=== PATIENT | male | born 1955 | race Caucasian/White ===

== ENCOUNTER 2019-01-28 20:48 | Observation (INO) ==
[2019-01-28] MEDS ORDERED: ASPIRIN 325 MG TABLET PO STA (20:54)
[2019-01-28] MEDS ORDERED: hydrALAZINE 20 MG/1 ML VIAL IV STA (21:16)
[2019-01-28] MEDS ORDERED: PANTOPRAZOLE 40 MG VIAL IV STA (21:16)
[2019-01-28] MEDS ORDERED: ONDANSETRON 4 MG/2 ML VIAL IV STA (21:16)
[2019-01-28] MEDS ORDERED: HYDROmorphone 2 MG/1 ML VIAL IV STA (21:16)
[2019-01-28 22:48] LABS: Amylase 38 U/L (25-115); Basophils % 0.3 % (0.0-0.8); Eosinophils # 0.1 10*3/uL (0.0-0.87); Eosinophils % 1.4 % (0.00-10.9); Hematocrit 49.2 VOL% (42.0-52.0); Hemoglobin 16.4 GM/DL (14.0-18.0); Immature Granulocytes % 0.6 %; Immature Granulocytes Absolute 0.06 #; Lymphocytes # 1.3 10*3/uL (1.4-4.0); Lymphocytes % 14.3 % (21.2-54.2); Mean Corpuscular HGB Conc 33.3 GM/DL (32-36); Mean Corpuscular Volume 95.2 FL (87-102); Mean Platelet Volume 12.6 FL (9.6-12.0); Monocytes % 9.3 % (1.7-12.7); Neutrophils % 74.1 % (38.7-73.9); Platelet Count 222 T/CUMM (130-400); Red Blood Count 5.17 MC/CUMM (3.8-5.5); Troponin I 0.016 NG/ML (0.00-0.045); White Blood Count 9.4 T/CUMM (4-12)
[2019-01-28 23:01] LABS: Apearance,Urine CLEAR (Clear); Bacteria,Urine Occasional /HPF (Few); Bilirubin,Urine Negative (Negative); Blood, Urine Negative (Negative); Glucose,Urine (UA) Negative (Negative); Hyaline Casts,Urine 1 /LPF (0-3); Ketones,Urine Negative (Negative); Mucus,Urine Occasional /LPF (Occasional); Nitrite,Urine Negative (Negative); Protein,Urine 30 MG/DL; RBC,Urine <1 /HPF (0-4); Squamous Epithelial Cell,Urine Occasional /HPF (0-10); Urine Color Yellow (Yellow); Urine Specific Gravity 1.023 (1.001-1.035); WBC,Urine <1 /HPF (0-6)
[2019-01-28 23:08] LABS: Barbiturates Screen,Urine Negative (Negative); Benzodiazepines Screen,Urine Positive (Negative); Cannabinoid Screen,Urine Positive (Negative); Opiate Screen,Urine Positive (Negative); Phencyclidine Screen,Urine Negative (Negative)
[2019-01-28 23:12] LABS: Albumin 3.7 G/DL (3.4-5.0); Bilirubin,Total 0.8 MG/DL (0.2-1.0); Calcium 9.4 MG/DL (8.5-10.1); Osmolality,Calculated 283.3 MOS/KG (273-304)
[2019-01-29] MEDS ORDERED: hydrALAZINE 20 MG/1 ML VIAL IV STA (00:07)
[2019-01-29] MEDS ORDERED: HYDROmorphone 2 MG/1 ML VIAL IV ONE (00:07)
[2019-01-29] MEDS ORDERED: ONDANSETRON 4 MG/2 ML VIAL IV STA (00:07)
[2019-01-29] MEDS ORDERED: traZODone 50 MG TABLET PO PRN (01:31)
[2019-01-29] MEDS ORDERED: ACETAMINOPHEN 325 MG TABLET PO PRN (01:31)
[2019-01-29] MEDS ORDERED: hydrALAZINE 20 MG/1 ML VIAL IV PRN (01:31)
[2019-01-29] MEDS ORDERED: NICOTINE 21 MG/24 HR PATCH TRANSDERM PRN (01:31)
[2019-01-29] MEDS ORDERED: ONDANSETRON 4 MG/2 ML VIAL IV PRN (01:31)
[2019-01-29 02:52] LABS: Albumin 3.6 G/DL (3.4-5.0); Bilirubin,Direct 0.2 MG/DL (0.0-0.20); Bilirubin,Indirect 0.3 MG/DL (0.0-1.0); Bilirubin,Total 0.5 MG/DL (0.2-1.0); Total Protein 7.6 G/DL (6.4-8.3)
[2019-01-29 02:59] LABS: Risk Ratio 2.98; VLDL CHOLESTEROL 24.8 MG/DL
[2019-01-29] MEDS: MORPHINE 4 MG/1 ML VIAL IV PRN ×2 (03:00→08:40)
[2019-01-29 03:42] LABS: Hepatitis B Core IgM Quant < 0.05 Index; Hepatitis B Surface Ag Quant 0.24 Index; Hepatitis B Surface Ag Result Negative (Negative); Hepatitis C Virus Ab Quant > 11.00 Index; Hepatitis C Virus Ab Result Positive (Negative)
[2019-01-29] MEDS: LISINOPRIL 20 MG TABLET PO SCH (08:42)
[2019-01-29] MEDS ORDERED: amLODIPine 10 MG TABLET PO SCH (10:05)
[2019-01-29 10:24] LABS: % Iron Saturation 28.7 % (18-50)
[2019-01-29 10:28] LABS: Troponin I 0.018 NG/ML (0.00-0.045)
[2019-01-29] MEDS: HYDROmorphone 2 MG/1 ML VIAL IV PRN ×3 (11:08→22:06)
[2019-01-29 13:10] LABS: Troponin I < 0.015 NG/ML (0.00-0.045)
[2019-01-29] MEDS: hydroCHLOROthiazide 25 MG TABLET PO SCH (15:32)
[2019-01-29 16:38] LABS: Troponin I < 0.015 NG/ML (0.00-0.045)
[2019-01-29] MEDS: PANTOPRAZOLE 40 MG VIAL IV SCH (22:06)
[2019-01-30] MEDS: HYDROmorphone 2 MG/1 ML VIAL IV PRN ×3 (01:35→11:14)
[2019-01-30 05:40] LABS: Basophils % 0.4 % (0.0-0.8); Eosinophils # 0.3 10*3/uL (0.0-0.87); Hematocrit 48.2 VOL% (42.0-52.0); Hemoglobin 15.7 GM/DL (14.0-18.0); Immature Granulocytes % 0.5 %; Immature Granulocytes Absolute 0.05 #; Lymphocytes # 1.7 10*3/uL (1.4-4.0); Lymphocytes % 16.9 % (21.2-54.2); Mean Corpuscular HGB Conc 32.6 GM/DL (32-36); Mean Corpuscular Volume 95.4 FL (87-102); Mean Platelet Volume 12.9 FL (9.6-12.0); Monocytes % 9.6 % (1.7-12.7); Neutrophils % 69.6 % (38.7-73.9); Platelet Count 206 T/CUMM (130-400); Red Blood Count 5.05 MC/CUMM (3.8-5.5); Red Cell Distribution Width 12.2 % (9.3-17.3); White Blood Count 9.8 T/CUMM (4-12)
[2019-01-30 06:02] LABS: Calcium 8.7 MG/DL (8.5-10.1)
[2019-01-30] MEDS ORDERED: LACTATED RINGERS 1,000 ML IV SCH (08:30)
[2019-01-30] MEDS ORDERED: PROPOFOL 200 MG/20 ML VIAL IV ONE (10:00)
[2019-01-30] MEDS ORDERED: LIDOCAINE 2% 5 ML VIAL ONE (10:00)
[2019-01-30] MEDS: PANTOPRAZOLE 40 MG VIAL IV SCH (11:13)
[2019-01-30] MEDS: hydroCHLOROthiazide 25 MG TABLET PO SCH (11:13)
[2019-01-30] MEDS: LISINOPRIL 20 MG TABLET PO SCH (11:13)
[2019-01-30 11:25] VITALS: BP 144/72
== END 2019-01-30 14:25 | disposition home or self-care (01) ==
LOC: N.EDINP 20:48 → N.ED 20:48 → N.TELEN 01-29 02:12
PROVIDERS: ADMIT Family Medicine; ATTEND Family Medicine

== ENCOUNTER 2019-05-05 22:17 | Observation (INO) ==
[2019-05-05] MEDS ORDERED: SODIUM CHLORIDE 0.9% 1,000 ML IV STA (23:26)
[2019-05-05] MEDS ORDERED: PANTOPRAZOLE 40 MG VIAL IV STA (23:26)
[2019-05-05] MEDS ORDERED: ONDANSETRON 4 MG/2 ML VIAL IV STA (23:26)
[2019-05-05 23:56] LABS: Basophils % 0.4 % (0.0-0.8); Eosinophils # 0.3 10*3/uL (0.0-0.87); Eosinophils % 2.9 % (0.00-10.9); Hematocrit 41.2 VOL% (42.0-52.0); Hemoglobin 13.7 GM/DL (14.0-18.0); Immature Granulocytes % 0.6 %; Immature Granulocytes Absolute 0.06 #; Lymphocytes # 1.6 10*3/uL (1.4-4.0); Lymphocytes % 15.9 % (21.2-54.2); Mean Corpuscular HGB Conc 33.3 GM/DL (32-36); Mean Corpuscular Volume 96.5 FL (87-102); Mean Platelet Volume 12.6 FL (9.6-12.0); Monocytes % 8.3 % (1.7-12.7); Neutrophils % 71.9 % (38.7-73.9); Platelet Count 190 T/CUMM (130-400); Red Blood Count 4.27 MC/CUMM (3.8-5.5); Red Cell Distribution Width 12.1 % (9.3-17.3); White Blood Count 9.9 T/CUMM (4-12)
[2019-05-06 00:06] LABS: INR 0.9; Partial Thromboplastin Time 25.9 SECS (20.8-36.0)
[2019-05-06 00:14] LABS: Alanine Aminotransferase 172 U/L (16-61); Albumin 3.2 G/DL (3.4-5.0); Alkaline Phosphatase 116 U/L (45-117); Aspartate Amino Transferase 151 U/L (0-37); Blood Urea Nitrogen 15 MG/DL (7-18); Calcium 8.3 MG/DL (8.5-10.1); Estimated Glom Filtration Rate 96 ML/MIN; Glucose 177 MG/DL (74-106); Osmolality,Calculated 277.8 MOS/KG (273-304); Total Protein 6.7 G/DL (6.4-8.3); Troponin I 0.044 NG/ML (0.00-0.045)
[2019-05-06] MEDS ORDERED: ORPHENADRINE 60 MG/2 ML VIAL IV STA (00:34)
[2019-05-06] MEDS ORDERED: ORPHENADRINE 60 MG/2 ML VIAL ONE (00:35)
[2019-05-06] MEDS ORDERED: NICOTINE 21 MG/24 HR PATCH TRANSDERM PRN (02:25)
[2019-05-06] MEDS ORDERED: GLUCAGON 1 MG VIAL IM PRN (02:25)
[2019-05-06] MEDS ORDERED: CALCIUM CARBONATE CHEW 500 MG TABLET PO PRN (02:25)
[2019-05-06] MEDS ORDERED: ONDANSETRON 4 MG/2 ML VIAL IV PRN (02:25)
[2019-05-06] MEDS ORDERED: hydrALAZINE 20 MG/1 ML VIAL IV PRN (02:25)
[2019-05-06] MEDS ORDERED: DEXTROSE 10% 250 ML BAG IV PRN (02:41)
[2019-05-06] MEDS: SODIUM CHLORIDE 0.9% 1,000 ML IV SCH ×2 (03:45→16:03)
[2019-05-06] MEDS: MORPHINE 4 MG/1 ML VIAL IV PRN ×3 (03:46→16:01)
[2019-05-06 05:58] LABS: Hemoglobin 14.2 GM/DL (14.0-18.0)
[2019-05-06] MEDS: PANTOPRAZOLE 40 MG VIAL IV SCH (08:34)
[2019-05-06] MEDS: lisinopriL 20 MG TABLET PO SCH ×2 (08:35→22:43)
[2019-05-06] MEDS: amLODIPine 5 MG TABLET PO SCH (09:53)
[2019-05-06] MEDS: POLYETHYLENE GLYCOL POWDER 17 GM PACK PO SCH ×3 (09:53→22:50)
[2019-05-06 10:45] LABS: Barbiturates Screen,Urine Negative (Negative); Benzodiazepines Screen,Urine Negative (Negative); Cannabinoid Screen,Urine Negative (Negative); Opiate Screen,Urine Positive (Negative); Phencyclidine Screen,Urine Negative (Negative)
[2019-05-06 13:37] LABS: Hematocrit 40.1 VOL% (42.0-52.0); Hemoglobin 13.1 GM/DL (14.0-18.0)
[2019-05-06] MEDS ORDERED: ACETAMINOPHEN 500 MG TABLET PO PRN (19:47)
[2019-05-06 20:28] LABS: Hematocrit 36.3 VOL% (42.0-52.0); Hemoglobin 11.5 GM/DL (14.0-18.0)
[2019-05-07] MEDS: PANTOPRAZOLE 40 MG VIAL IV SCH ×2 (01:00→09:19)
[2019-05-07] MEDS: MORPHINE 4 MG/1 ML VIAL IV PRN ×2 (01:04→09:18)
[2019-05-07] MEDS: SODIUM CHLORIDE 0.9% 1,000 ML IV SCH (04:20)
[2019-05-07] MEDS: amLODIPine 5 MG TABLET PO SCH (09:19)
[2019-05-07] MEDS: lisinopriL 20 MG TABLET PO SCH (09:19)
[2019-05-07] MEDS: POLYETHYLENE GLYCOL POWDER 17 GM PACK PO SCH (09:22)
[2019-05-07 09:26] VITALS: BP 162/97
== END 2019-05-07 12:22 | disposition home or self-care (01) ==
LOC: N.ED 22:17 → N.EDINP 22:17 → SUATTDRO 05-06 01:08 → N.2W 05-06 02:15
PROVIDERS: ADMIT Internal Medicine; ATTEND Internal Medicine

== ENCOUNTER 2019-07-14 08:41 | Observation (INO) ==
[2019-07-14] MEDS ORDERED: ENOXAPARIN 100 MG/ML SYRINGE SUBCUT STA (09:12)
[2019-07-14] MEDS ORDERED: ASPIRIN 325 MG TABLET PO STA (09:12)
[2019-07-14] MEDS ORDERED: METOPROLOL TARTRATE 5 MG/5 ML VIAL IV STA (09:41)
[2019-07-14] MEDS ORDERED: ENOXAPARIN 120 MG/0.8 ML SYRINGE SUBCUT ONE (09:42)
[2019-07-14] MEDS ORDERED: METOPROLOL TARTRATE 5 MG/5 ML VIAL IV ONE (09:42)
[2019-07-14] MEDS ORDERED: NITROGLYCERIN SL 0.4 MG TABLET SL ONE (09:43)
[2019-07-14 09:45] LABS: Basophils % 0.2 % (0.0-0.8); Eosinophils # 0.2 10*3/uL (0.0-0.87); Eosinophils % 2.7 % (0.00-10.9); Hematocrit 45.1 VOL% (42.0-52.0); Hemoglobin 14.5 GM/DL (14.0-18.0); Immature Granulocytes Absolute 0.08 #; Lymphocytes # 0.9 10*3/uL (1.4-4.0); Lymphocytes % 10.8 % (21.2-54.2); Mean Corpuscular HGB Conc 32.2 GM/DL (32-36); Mean Platelet Volume 12.3 FL (9.6-12.0); Monocytes % 8.8 % (1.7-12.7); Neutrophils % 76.5 % (38.7-73.9); Platelet Count 189 T/CUMM (130-400); Red Blood Count 4.65 MC/CUMM (3.8-5.5); Red Cell Distribution Width 11.9 % (9.3-17.3); White Blood Count 8.4 T/CUMM (4-12)
[2019-07-14] MEDS ORDERED: NITROGLYCERIN SL 0.4 MG TABLET SL STA (09:53)
[2019-07-14 10:10] LABS: Bilirubin,Total 0.4 MG/DL (0.2-1.0); Calcium 8.9 MG/DL (8.5-10.1); Osmolality,Calculated 282.7 MOS/KG (273-304); Total Protein 7.6 G/DL (6.4-8.3)
[2019-07-14] MEDS ORDERED: INSULIN REGULAR 100 UNIT/ML SUBCUT STA (10:25)
[2019-07-14] MEDS ORDERED: NITROGLYCERIN 2% OINT 1 INCH/GM PACK TOP ONE (10:33)
[2019-07-14] MEDS ORDERED: NITROGLYCERIN 2% OINT 1 INCH/GM PACK TOP STA (11:30)
[2019-07-14] MEDS ORDERED: hydrALAZINE 20 MG/1 ML VIAL IV PRN (11:42)
[2019-07-14] MEDS ORDERED: DEXTROSE 50% 25 GM/50 ML VIAL IV PRN (11:42)
[2019-07-14] MEDS ORDERED: ONDANSETRON 4 MG/2 ML VIAL IV PRN (11:42)
[2019-07-14] MEDS ORDERED: ACETAMINOPHEN 325 MG TABLET PO PRN (11:42)
[2019-07-14] MEDS ORDERED: GLUCAGON 1 MG VIAL IM PRN (11:42)
[2019-07-14] MEDS ORDERED: LACTULOSE 20 GM/30 ML UDCUP PO PRN (11:42)
[2019-07-14 11:57] LABS: Apearance,Urine CLEAR (Clear); Bilirubin,Urine Negative (Negative); Blood, Urine Negative (Negative); Glucose,Urine (UA) >=500 mg/dL (Negative); Hyaline Casts,Urine 1 /LPF (0-3); Ketones,Urine Negative (Negative); Mucus,Urine Occasional /LPF (Occasional); Nitrite,Urine Negative (Negative); Protein,Urine Negative; RBC,Urine <1 /HPF (0-4); Urine Color Yellow (Yellow); Urine Specific Gravity 1.024 (1.001-1.035); WBC,Urine 1 /HPF (0-6)
[2019-07-14 12:04] LABS: Barbiturates Screen,Urine Negative (Negative); Benzodiazepines Screen,Urine Negative (Negative); Cannabinoid Screen,Urine Negative (Negative); Opiate Screen,Urine Negative (Negative); Phencyclidine Screen,Urine Negative (Negative)
[2019-07-14 12:11] LABS: Thyroid Stimulating Hormone 12.3 uIU/ml (0.358-3.74)
[2019-07-14] MEDS ORDERED: MAGNESIUM SULF RIDER 4 GM in PREMIX 1 EACH IV PRN (12:18)
[2019-07-14] MEDS ORDERED: MAGNESIUM SULF RIDER 2 GM in PREMIX 1 EACH IV PRN (12:18)
[2019-07-14] MEDS ORDERED: carvediloL 6.25 MG TABLET PO SCH (12:30)
[2019-07-14] MEDS ORDERED: ALBUTEROL/IPRATROPIUM 3 ML NEB RESP TX PRN (13:07)
[2019-07-14] MEDS ORDERED: METOPROLOL SUCCINATE XL 25 MG TABLET PO SCH (13:30)
[2019-07-14] MEDS ORDERED: ALUM/MAG/SIMETH/LIDO VISC 1:1 30 ML BOTTLE PO ONE (13:35)
[2019-07-14] MEDS: ENOXAPARIN 40 MG/0.4 ML SYRINGE SUBCUT SCH (14:09)
[2019-07-14] MEDS: MORPHINE 4 MG/1 ML VIAL IV PRN ×2 (14:32→20:57)
[2019-07-14] MEDS: INSULIN REGULAR 100 UNIT/ML SUBCUT SCH ×2 (17:14→20:58)
[2019-07-14] MEDS: NITROGLYCERIN 2% OINT 1 INCH/GM PACK TOP SCH ×2 (17:34→23:33)
[2019-07-14] MEDS: guaiFENesin/DM ER 600-30 MG TABLET PO SCH (20:57)
[2019-07-14] MEDS ORDERED: NON-FORMULARY MEDICATION (Lisinopril 40 MG) PO SCH (21:00)
[2019-07-15] MEDS: MORPHINE 4 MG/1 ML VIAL IV PRN ×2 (02:30→07:58)
[2019-07-15] MEDS: NITROGLYCERIN 2% OINT 1 INCH/GM PACK TOP SCH (05:03)
[2019-07-15 06:13] LABS: Basophils % 0.5 % (0.0-0.8); Eosinophils # 0.3 10*3/uL (0.0-0.87); Eosinophils % 3.4 % (0.00-10.9); Hematocrit 44.7 VOL% (42.0-52.0); Hemoglobin 14.8 GM/DL (14.0-18.0); Immature Granulocytes % 1.2 %; Lymphocytes # 1.4 10*3/uL (1.4-4.0); Mean Corpuscular HGB Conc 33.1 GM/DL (32-36); Mean Corpuscular Volume 93.9 FL (87-102); Mean Platelet Volume 13.5 FL (9.6-12.0); Monocytes % 9.4 % (1.7-12.7); Neutrophils % 68.5 % (38.7-73.9); Platelet Count 141 T/CUMM (130-400); Red Blood Count 4.76 MC/CUMM (3.8-5.5); Red Cell Distribution Width 11.9 % (9.3-17.3)
[2019-07-15] MEDS ORDERED: LEVOTHYROXINE 50 MCG TABLET PO SCH (06:30)
[2019-07-15 06:35] LABS: Platelet Estimate Adequate
[2019-07-15 06:43] LABS: Calcium 8.9 MG/DL (8.5-10.1); Osmolality,Calculated 266.7 MOS/KG (273-304); Risk Ratio 4.91; VLDL CHOLESTEROL 50.6 MG/DL
[2019-07-15] MEDS: INSULIN REGULAR 100 UNIT/ML SUBCUT SCH ×2 (07:56→12:17)
[2019-07-15] MEDS: guaiFENesin/DM ER 600-30 MG TABLET PO SCH (07:59)
[2019-07-15] MEDS ORDERED: ASPIRIN EC 81 MG TABLET PO SCH (09:00)
[2019-07-15] MEDS ORDERED: lisinopriL 20 MG TABLET PO SCH (09:00)
[2019-07-15] MEDS ORDERED: amLODIPine 5 MG TABLET PO SCH (09:00)
[2019-07-15] MEDS ORDERED: amLODIPine 10 MG TABLET PO SCH (09:00)
[2019-07-15] MEDS ORDERED: METOPROLOL SUCCINATE XL 25 MG TABLET PO SCH (09:00)
[2019-07-15] MEDS ORDERED: ISOSORBIDE MONONITRATE 30 MG TABLET PO SCH (09:12)
[2019-07-15] MEDS ORDERED: PANTOPRAZOLE 40 MG TABLET PO SCH (10:00)
[2019-07-15] MEDS: ENOXAPARIN 40 MG/0.4 ML SYRINGE SUBCUT SCH (12:15)
[2019-07-15 12:31] VITALS: BP 165/95
[2019-07-16] MEDS ORDERED: ISOSORBIDE MONONITRATE 30 MG TABLET PO SCH (09:00)
== END 2019-07-15 12:47 | disposition home or self-care (01) ==
LOC: N.ED 08:41 → N.EDINP 08:41 → N.TELES 12:29
PROVIDERS: ADMIT Internal Medicine Geriatric Medicine; ATTEND Internal Medicine Geriatric Medicine

== ENCOUNTER 2020-06-25 14:16 | Inpatient (IN) ==
[2020-06-25] MEDS ORDERED: DILTIAZEM 50 MG/10 ML VIAL IV STA ×2 (14:44→15:38)
[2020-06-25] MEDS ORDERED: DILTIAZEM 100 MG VIAL.ADD IV ONE (14:46)
[2020-06-25 14:50] LABS: Basophils % 0.4 % (0.0-0.8); Eosinophils # 0.3 10*3/uL (0.0-0.87); Eosinophils % 3.9 % (0.00-10.9); Hematocrit 43.4 VOL% (42.0-52.0); Hemoglobin 13.9 GM/DL (14.0-18.0); Immature Granulocytes % 0.6 %; Immature Granulocytes Absolute 0.05 #; Lymphocytes # 1.3 10*3/uL (1.4-4.0); Lymphocytes % 15.6 % (21.2-54.2); Mean Corpuscular Volume 101.6 FL (87-102); Mean Platelet Volume 13.1 FL (9.6-12.0); Monocytes % 10.2 % (1.7-12.7); Neutrophils % 69.3 % (38.7-73.9); Platelet Count 155 T/CUMM (130-400); Red Blood Count 4.27 MC/CUMM (3.8-5.5); White Blood Count 8.3 T/CUMM (4-12)
[2020-06-25] MEDS: DILTIAZEM INJ 100 MG in SODIUM CHLORIDE 0.9% 100 ML IV SCH ×2 (15:06→23:59)
[2020-06-25 15:08] LABS: Albumin 3.3 G/DL (3.4-5.0); Bilirubin,Total 0.5 MG/DL (0.2-1.0); Calcium 8.3 MG/DL (8.5-10.1); Osmolality,Calculated 279.1 MOS/KG (273-304); Potassium 4.5 MMOL/L (3.5-5.1)
[2020-06-25 15:36] LABS: PT Patient Result 10.3 SECS (9.8-11.9); Partial Thromboplastin Time 25.4 SECS (23.9-33.8)
[2020-06-25 16:06] LABS: Barbiturates Screen,Urine Negative (Negative); Benzodiazepines Screen,Urine Negative (Negative); Cannabinoid Screen,Urine Positive (Negative); Opiate Screen,Urine Negative (Negative); Phencyclidine Screen,Urine Negative (Negative)
[2020-06-25] MEDS ORDERED: hydrALAZINE 20 MG/1 ML VIAL IV STA (16:20)
[2020-06-25] MEDS ORDERED: FUROSEMIDE 40 MG/4 ML VIAL ONE (16:26)
[2020-06-25] MEDS ORDERED: FUROSEMIDE 40 MG/4 ML VIAL IV STA (16:26)
[2020-06-25] MEDS ORDERED: ONDANSETRON 4 MG/2 ML VIAL IV PRN (17:26)
[2020-06-25] MEDS ORDERED: DOCUSATE SODIUM 100 MG CAPSULE PO PRN (17:26)
[2020-06-25] MEDS ORDERED: hydrALAZINE 20 MG/1 ML VIAL IV PRN (17:26)
[2020-06-25] MEDS ORDERED: GLUCAGON 1 MG VIAL IM PRN (17:26)
[2020-06-25] MEDS ORDERED: DEXTROSE 50% 25 GM/50 ML VIAL IV PRN (17:26)
[2020-06-25] MEDS ORDERED: guaiFENesin/DM ER 600-30 MG TABLET PO PRN (17:26)
[2020-06-25] MEDS ORDERED: ACETAMINOPHEN 325 MG TABLET PO PRN (17:26)
[2020-06-25] MEDS ORDERED: methylPREDNISolone SOD SUC 125 MG/2 ML VIAL IV STA (17:32)
[2020-06-25] MEDS ORDERED: MAGNESIUM SULF RIDER 2 GM in PREMIX 1 EACH IV ONE (18:00)
[2020-06-25 19:19] LABS: Bilirubin,Urine Negative (Negative); Blood, Urine Negative (Negative); Glucose,Urine (UA) Negative (Negative); Ketones,Urine Negative (Negative); Mucus,Urine Occasional /LPF (Occasional); Nitrite,Urine Negative (Negative); Protein,Urine Negative; RBC,Urine 1 /HPF (0-4); Urine Appearance CLEAR (Clear); Urine Color Colorless (Yellow); Urine Specific Gravity 1.014 (1.001-1.035); Urine Urobilinogen < 2.0 EU/DL (0.2-1.0); WBC,Urine <1 /HPF (0-6)
[2020-06-25] MEDS: ENOXAPARIN 40 MG/0.4 ML SYRINGE SUBCUT SCH (19:26)
[2020-06-25] MEDS: METOPROLOL SUCCINATE XL 25 MG TABLET PO SCH (19:26)
[2020-06-25] MEDS: INSULIN REGULAR 100 UNIT/ML SUBCUT SCH (19:42)
[2020-06-25] MEDS: ALBUTEROL/IPRATROPIUM 3 ML NEB RESP TX SCH (19:42)
[2020-06-26] MEDS: ALBUTEROL/IPRATROPIUM 3 ML NEB RESP TX SCH ×4 (00:40→19:25)
[2020-06-26 05:59] LABS: Basophils % 0.1 % (0.0-0.8); Eosinophils % 0.1 % (0.00-10.9); Immature Granulocytes % 0.8 %; Immature Granulocytes Absolute 0.07 #; Lymphocytes # 0.6 10*3/uL (1.4-4.0); Lymphocytes % 6.4 % (21.2-54.2); Mean Corpuscular HGB Conc 33.3 GM/DL (32-36); Mean Corpuscular Volume 99.5 FL (87-102); Mean Platelet Volume 14.1 FL (9.6-12.0); Monocytes % 1.9 % (1.7-12.7); Neutrophils % 90.7 % (38.7-73.9); Platelet Count 169 T/CUMM (130-400); Red Blood Count 4.22 MC/CUMM (3.8-5.5); Red Cell Distribution Width 12.8 % (9.3-17.3)
[2020-06-26 06:23] LABS: Albumin 3.3 G/DL (3.4-5.0); Bilirubin,Direct 0.27 MG/DL (0.0-0.20); Bilirubin,Indirect 0.7 MG/DL (0.0-1.0); Total Protein 7.8 G/DL (6.4-8.2)
[2020-06-26 06:31] LABS: Osmolality,Calculated 279.5 MOS/KG (273-304); Potassium 4.6 MMOL/L (3.5-5.1); Risk Ratio 2.44; Thyroid Stimulating Hormone 2.1 uIU/ml (0.358-3.74); VLDL CHOLESTEROL 13.2 MG/DL
[2020-06-26 06:58] LABS: Anisocytosis Slight; Band Neutrophils 15 % (0-10); Lymphocytes 8 % (20-55); Macrocytosis Slight; Platelet Estimate Normal; Segmented Neutrophils 74 % (50-85); Total Cells Counted 100
[2020-06-26] MEDS: GLIMEPIRIDE 2 MG TABLET PO SCH ×2 (08:41→16:05)
[2020-06-26] MEDS: methylPREDNISolone SOD SUC 125 MG/2 ML VIAL IV SCH ×2 (08:43→20:08)
[2020-06-26] MEDS: METOPROLOL SUCCINATE XL 25 MG TABLET PO SCH (08:43)
[2020-06-26] MEDS: PANTOPRAZOLE 40 MG TABLET PO SCH (08:43)
[2020-06-26] MEDS: FUROSEMIDE 40 MG/4 ML VIAL IV SCH ×2 (08:43→15:31)
[2020-06-26] MEDS: INSULIN REGULAR 100 UNIT/ML SUBCUT SCH ×4 (08:53→20:12)
[2020-06-26] MEDS ORDERED: amLODIPine 10 MG TABLET PO SCH (09:00)
[2020-06-26] MEDS: ASPIRIN EC 325 MG TABLET PO SCH (09:10)
[2020-06-26] MEDS: DILTIAZEM 60 MG TABLET PO SCH ×3 (09:10→17:56)
[2020-06-26] MEDS: ENOXAPARIN 40 MG/0.4 ML SYRINGE SUBCUT SCH (17:56)
[2020-06-27] MEDS: ALBUTEROL/IPRATROPIUM 3 ML NEB RESP TX SCH ×4 (00:06→18:54)
[2020-06-27] MEDS: DILTIAZEM 60 MG TABLET PO SCH ×2 (02:45→06:15)
[2020-06-27 04:29] LABS: Basophils % 0.1 % (0.0-0.8); Hematocrit 42.1 VOL% (42.0-52.0); Hemoglobin 13.6 GM/DL (14.0-18.0); Immature Granulocytes % 0.7 %; Immature Granulocytes Absolute 0.13 #; Lymphocytes % 5.4 % (21.2-54.2); Mean Corpuscular HGB Conc 32.3 GM/DL (32-36); Mean Corpuscular Volume 101.2 FL (87-102); Mean Platelet Volume 12.9 FL (9.6-12.0); Monocytes % 4.5 % (1.7-12.7); Neutrophils % 89.3 % (38.7-73.9); Platelet Count 232 T/CUMM (130-400); Red Blood Count 4.16 MC/CUMM (3.8-5.5)
[2020-06-27 05:00] LABS: Calcium 8.9 MG/DL (8.5-10.1); Osmolality,Calculated 280.4 MOS/KG (273-304); Potassium 4.3 MMOL/L (3.5-5.1)
[2020-06-27 05:03] LABS: Albumin 3.2 G/DL (3.4-5.0); Bilirubin,Direct 0.18 MG/DL (0.0-0.20); Bilirubin,Indirect 0.8 MG/DL (0.0-1.0); Total Protein 7.9 G/DL (6.4-8.2)
[2020-06-27] MEDS: GLIMEPIRIDE 2 MG TABLET PO SCH ×2 (09:08→16:54)
[2020-06-27] MEDS: METOPROLOL SUCCINATE XL 25 MG TABLET PO SCH (09:10)
[2020-06-27] MEDS: PANTOPRAZOLE 40 MG TABLET PO SCH (09:10)
[2020-06-27] MEDS: ASPIRIN EC 325 MG TABLET PO SCH (09:11)
[2020-06-27] MEDS: INSULIN REGULAR 100 UNIT/ML SUBCUT SCH ×4 (09:16→20:46)
[2020-06-27] MEDS: FUROSEMIDE 40 MG/4 ML VIAL IV SCH ×2 (09:17→16:50)
[2020-06-27] MEDS: methylPREDNISolone SOD SUC 125 MG/2 ML VIAL IV SCH ×2 (09:21→20:46)
[2020-06-27] MEDS: DILTIAZEM CD 240 MG CAPSULE PO SCH ×2 (11:29→13:00)
[2020-06-27 15:43] LABS: Troponin I < 0.015 NG/ML (0.00-0.045)
[2020-06-27] MEDS: cefTRIAXone 2,000 MG in SYRINGE 1 EACH IV SCH (15:54)
[2020-06-27] MEDS: ENOXAPARIN 40 MG/0.4 ML SYRINGE SUBCUT SCH (17:06)
[2020-06-28] MEDS: ALBUTEROL/IPRATROPIUM 3 ML NEB RESP TX SCH ×3 (00:09→13:42)
[2020-06-28 04:00] LABS: Basophils % 0.1 % (0.0-0.8); Hematocrit 42.2 VOL% (42.0-52.0); Immature Granulocytes % 0.8 %; Immature Granulocytes Absolute 0.14 #; Lymphocytes # 0.8 10*3/uL (1.4-4.0); Lymphocytes % 4.7 % (21.2-54.2); Mean Corpuscular HGB Conc 33.2 GM/DL (32-36); Mean Corpuscular Volume 99.5 FL (87-102); Mean Platelet Volume 12.7 FL (9.6-12.0); Monocytes % 5.1 % (1.7-12.7); Neutrophils % 89.3 % (38.7-73.9); Platelet Count 193 T/CUMM (130-400); Red Blood Count 4.24 MC/CUMM (3.8-5.5); White Blood Count 16.5 T/CUMM (4-12)
[2020-06-28 04:21] LABS: Lymphocytes 5 % (20-55); Platelet Estimate Adequate; Segmented Neutrophils 87 % (50-85); Total Cells Counted 100
[2020-06-28 04:22] LABS: Calcium 8.5 MG/DL (8.5-10.1); Osmolality,Calculated 283.4 MOS/KG (273-304); Potassium 4.1 MMOL/L (3.5-5.1)
[2020-06-28 04:24] LABS: Bilirubin,Direct 0.14 MG/DL (0.0-0.20); Bilirubin,Total 1.1 MG/DL (0.2-1.0); Total Protein 7.6 G/DL (6.4-8.2)
[2020-06-28 04:24] LABS: Troponin I < 0.015 NG/ML (0.00-0.045)
[2020-06-28] MEDS: INSULIN REGULAR 100 UNIT/ML SUBCUT SCH ×2 (08:43→11:12)
[2020-06-28] MEDS: FUROSEMIDE 40 MG/4 ML VIAL IV SCH (08:44)
[2020-06-28] MEDS: ASPIRIN EC 325 MG TABLET PO SCH (08:50)
[2020-06-28] MEDS: METOPROLOL SUCCINATE XL 25 MG TABLET PO SCH (08:50)
[2020-06-28] MEDS: PANTOPRAZOLE 40 MG TABLET PO SCH (08:51)
[2020-06-28] MEDS: GLIMEPIRIDE 2 MG TABLET PO SCH (08:51)
[2020-06-28] MEDS: DILTIAZEM CD 240 MG CAPSULE PO SCH (08:52)
[2020-06-28] MEDS ORDERED: lisinopriL 20 MG TABLET PO SCH (09:00)
[2020-06-28] MEDS ORDERED: predniSONE 20 MG TABLET PO SCH (09:00)
[2020-06-28] MEDS ORDERED: METOPROLOL SUCCINATE XL 25 MG TABLET PO ONE (09:24)
[2020-06-28] MEDS: cefTRIAXone 2,000 MG in SYRINGE 1 EACH IV SCH (15:06)
[2020-06-28] MEDS ORDERED: FUROSEMIDE 40 MG TABLET PO SCH (16:00)
[2020-06-28 16:20] VITALS: BP 129/85
[2020-06-29] MEDS ORDERED: METOPROLOL SUCCINATE XL 25 MG TABLET PO SCH (09:00)
[2020-06-29] MEDS ORDERED: METOPROLOL SUCCINATE XL 50 MG TABLET PO SCH (09:00)
== END 2020-06-28 17:15 | disposition home or self-care (01) | DRG 308 ==
LOC: N.ED 14:16 → SUATTDRO 17:26 → N.EDINP 17:26 → N.TELES 18:23
PROVIDERS: ADMIT Phlebology; ATTEND Internal Medicine

== ENCOUNTER 2020-09-05 11:43 | Observation (INO) ==
[2020-09-05] MEDS ORDERED: DEXTROSE 50% 25 GM/50 ML VIAL IV PRN (14:40)
[2020-09-05] MEDS ORDERED: ACETAMINOPHEN 325 MG TABLET PO PRN (14:40)
[2020-09-05] MEDS ORDERED: GLUCAGON 1 MG VIAL IM PRN (14:40)
[2020-09-05] MEDS ORDERED: ONDANSETRON 4 MG/2 ML VIAL IV PRN (14:40)
[2020-09-05 15:37] LABS: Albumin 2.9 G/DL (3.4-5.0); Bilirubin,Total 0.4 MG/DL (0.2-1.0); Calcium 8.6 MG/DL (8.5-10.1); Osmolality,Calculated 290.7 MOS/KG (273-304); Potassium 4.6 MMOL/L (3.5-5.1); Total Protein 7.3 G/DL (6.4-8.2)
[2020-09-05 16:01] LABS: Basophils % 0.6 % (0.0-0.8); Eosinophils # 0.2 10*3/uL (0.0-0.87); Eosinophils % 2.3 % (0.00-10.9); Hemoglobin 14.8 GM/DL (14.0-18.0); Immature Granulocytes % 0.9 %; Immature Granulocytes Absolute 0.06 #; Lymphocytes # 1.3 10*3/uL (1.4-4.0); Lymphocytes % 18.6 % (21.2-54.2); Mean Corpuscular HGB Conc 34.4 GM/DL (32-36); Mean Corpuscular Volume 96.6 FL (87-102); Mean Platelet Volume 14.2 FL (9.6-12.0); Monocytes % 12.3 % (1.7-12.7); Neutrophils % 65.3 % (38.7-73.9); Platelet Count 125 T/CUMM (130-400); Red Blood Count 4.45 MC/CUMM (3.8-5.5); Red Cell Distribution Width 12.6 % (9.3-17.3); White Blood Count 6.9 T/CUMM (4-12)
[2020-09-05] MEDS ORDERED: ALBUTEROL/IPRATROPIUM 3 ML NEB RESP TX PRN (16:20)
[2020-09-05] MEDS: INSULIN LISPRO 100 UNIT/ML SUBCUT SCH ×2 (17:16→20:17)
[2020-09-05] MEDS: ALBUTEROL 2.5 MG/3 ML NEB RESP TX SCH (18:35)
[2020-09-05] MEDS: HYDROmorphone 2 MG TABLET PO SCH (20:17)
[2020-09-05] MEDS: TAMSULOSIN 0.4 MG CAPSULE PO SCH (20:17)
[2020-09-05] MEDS: cloNIDine 0.1 MG TABLET PO SCH (20:17)
[2020-09-06] MEDS: ALBUTEROL 2.5 MG/3 ML NEB RESP TX SCH ×3 (00:52→13:15)
[2020-09-06] MEDS ORDERED: LEVOTHYROXINE 50 MCG TABLET PO SCH (06:00)
[2020-09-06 07:08] LABS: Basophils % 0.5 % (0.0-0.8); Eosinophils # 0.2 10*3/uL (0.0-0.87); Eosinophils % 2.1 % (0.00-10.9); Hematocrit 44.5 VOL% (42.0-52.0); Hemoglobin 14.7 GM/DL (14.0-18.0); Immature Granulocytes % 1.1 %; Immature Granulocytes Absolute 0.09 #; Lymphocytes # 1.7 10*3/uL (1.4-4.0); Lymphocytes % 20.9 % (21.2-54.2); Mean Corpuscular Volume 98.9 FL (87-102); Mean Platelet Volume 13.3 FL (9.6-12.0); Monocytes % 9.1 % (1.7-12.7); Neutrophils % 66.3 % (38.7-73.9); Platelet Count 141 T/CUMM (130-400); Red Cell Distribution Width 12.8 % (9.3-17.3); White Blood Count 8.1 T/CUMM (4-12)
[2020-09-06 07:26] LABS: Albumin 2.9 G/DL (3.4-5.0); Bilirubin,Total 0.4 MG/DL (0.2-1.0); Calcium 8.4 MG/DL (8.5-10.1); Osmolality,Calculated 284.8 MOS/KG (273-304); Potassium 4.8 MMOL/L (3.5-5.1); Total Protein 7.3 G/DL (6.4-8.2)
[2020-09-06] MEDS ORDERED: DEXTROSE 50% 25 GM/50 ML VIAL IV PRN (07:30)
[2020-09-06] MEDS ORDERED: amLODIPine 10 MG TABLET PO SCH (09:00)
[2020-09-06] MEDS ORDERED: PANTOPRAZOLE 40 MG TABLET PO SCH (09:00)
[2020-09-06] MEDS ORDERED: FUROSEMIDE 80 MG TABLET PO SCH (09:00)
[2020-09-06] MEDS ORDERED: METOPROLOL SUCCINATE XL 25 MG TABLET PO SCH (09:00)
[2020-09-06] MEDS ORDERED: glipiZIDE 10 MG TABLET PO SCH (09:00)
[2020-09-06] MEDS ORDERED: ASPIRIN EC 325 MG TABLET PO SCH (09:00)
[2020-09-06] MEDS ORDERED: lisinopriL 20 MG TABLET PO SCH (09:00)
[2020-09-06] MEDS ORDERED: DILTIAZEM CD 240 MG CAPSULE PO SCH (09:00)
[2020-09-06] MEDS: INSULIN LISPRO 100 UNIT/ML SUBCUT SCH ×4 (09:29→20:27)
[2020-09-06] MEDS: HYDROmorphone 2 MG TABLET PO SCH ×2 (09:29→20:27)
[2020-09-06] MEDS: cloNIDine 0.1 MG TABLET PO SCH ×2 (09:30→20:27)
[2020-09-06] MEDS: TAMSULOSIN 0.4 MG CAPSULE PO SCH ×2 (09:30→20:27)
[2020-09-06 21:09] VITALS: BP 131/81
== END 2020-09-06 20:58 | disposition home or self-care (01) ==
LOC: N.TELEN 14:03 → SUATTDRO 14:03 → INTOOBSV 14:03
PROVIDERS: ADMIT Internal Medicine; ATTEND Internal Medicine Geriatric Medicine